=== PATIENT | female | born 1965 | race American Indian/Alaskan Native ===

== ENCOUNTER 2017-05-13 13:19 | Outpatient (CLI) | payer BC ==
--- NOTE | 2017-05-13 17:11 | Cat Scan Report ---
FINAL REPORT EXAM: CT ABDOMEN PELVIS WO/W CON HISTORY: ABNORMAL ULTRASOUND,CYST LLQ TECHNIQUE: Standard unenhanced and enhanced CT of the abdomen and pelvis. Delayed imaging through the pelvis was obtained. Coronal and sagittal reconstruction was also performed. Contrast: Intravenous and oral contrast was given PRIORS: None. FINDINGS: Within the abdomen, the liver, spleen, pancreas, adrenal glands, and kidneys are unremarkable. Gallbladder has been surgically removed. Prior surgery of the stomach is seen. No evidence for retroperitoneal or pelvic lymphadenopathy is seen. The bowel loops have normal caliber. No soft tissue mass, fluid collection, inflammatory change, or free air is seen within the abdomen or pelvis. The appendix is normal. Within the pelvis, the bladder is unremarkable. The uterus has been surgically removed. There cyst are 2 thin-walled homogeneous low-density cysts on either side of midline within the pelvis vaginal cuff (axial image 153, series 4). On the left, this measures 4.1 x 5.2 cm. On the right, this measures 4.0 x 3.7 cm. No evidence for mass or lymphadenopathy is seen in the pelvis. Images through the upper abdomen include the lung bases which demonstrates bibasilar linear atelectasis. Small hiatal hernia is seen. Bony structures show moderate degenerative disc narrowing at L5-S1 with a subtle, grade 1, retrolisthesis of L5 on S1. Bilateral facet joint degenerative changes are present from L4 through S1. Degenerative sclerosis is present on both sides of the SI joints. IMPRESSION: 1. no acute intra-abdominal process noted. 2. Two cysts near the vaginal cuff identified on both sides of midline in the pelvis. Findings are likely ovarian in etiology and can be confirmed with ultrasound. 3. Hysterectomy and cholecystectomy 4. Degenerative changes present throughout the spine and SI joint. 5. Small hiatal hernia.
== END 2017-05-13 13:20 | disposition home or self-care (01) ==
LOC: CT 13:19
DX: N94.89 Other specified conditions associated with female genital organs and menstrual cycle (principal); R30.0 Dysuria; R80.9 Proteinuria, unspecified; R93.8 Abnormal findings on diagnostic imaging of other specified body structures; Z90.49 Acquired absence of other specified parts of digestive tract; Z90.710 Acquired absence of both cervix and uterus; J98.11 Atelectasis; K44.9 Diaphragmatic hernia without obstruction or gangrene; M47.897 Other spondylosis, lumbosacral region
CPT/HCPCS: 74178; Q9967

== ENCOUNTER 2017-10-17 12:28 | Outpatient (CLI) | payer BC ==
--- NOTE | 2017-10-17 13:09 | Mammography Report ---
BILATERAL MAMMOGRAM: FINDINGS: There are scattered fibroglandular densities (approximately 25%-50% glandular). No mass, distortion, suspicious calcification, or skin change is seen. Biopsy marker in the anterior right breast. No significant change when compared to prior exam in April 2016. CAD was utilized. IMPRESSION: Negative mammogram. There is no mammographic evidence of malignancy. RECOMMENDATION: Follow-up per ACS guidelines. BI-RADS CATEGORY: 1 = Negative ACR BI-RADS MAMMOGRAPHIC CODES: 0 = Needs additional imaging evaluation; 1 = Negative; 2 = Benign; 3 = Probably benign; 4 = Suspicious; 5 = Malignant; 6 = Known biopsy-proven malignancy COMMENT: 1. Dense breast tissue, i.e., adenosis, fibrocystic changes, etc., may obscure an underlying neoplasm. 2. Approximately 10% of cancers are not detected with mammography. 3. A negative mammography report should not delay biopsy if a clinically suspicious mass is present. COMMENT: Patient follow-up letters are generated in [employer].
--- NOTE | 2017-10-17 19:05 | Cat Scan Report ---
FINAL REPORT PROCEDURE: CT PELVIS WO CON TECHNIQUE: Computerized axial tomography of the pelvis was performed without contrast material. HISTORY: OVARIAN CYSTS COMPARISON: 05/13/2017 TECHNICAL QUALITY: Satisfactory. FINDINGS: Imaged small and large intestine: Unremarkable. Genitourinary system: There has been hysterectomy. In the left pelvis there is a circumscribed cystic structure which measures 4.9 centimeters craniocaudal x 4.6 centimeters AP x 4.5 centimeters transverse. Previously seen right pelvic cyst is no longer visualized Lymph nodes/mesentery: Normal . Intraperitoneal fluid: None . Bilateral sacroiliac joint sclerotic changes IMPRESSION: Circumscribed cystic structure in the left pelvis is likely related to the left ovary and measures up to 4.9 centimeters. This is not significantly changed since the prior study. Evaluation with ultrasound could be obtained for further characterization. Previously seen right pelvic cyst is not visualized on the current exam
== END 2017-10-17 12:29 | disposition home or self-care (01) ==
LOC: MAMMO 12:28
PROVIDERS: ATTEND Obstetrics & Gynecology
DX: Z12.31 Encounter for screening mammogram for malignant neoplasm of breast (principal); N83.209 Unspecified ovarian cyst, unspecified side; Z90.710 Acquired absence of both cervix and uterus
CPT/HCPCS: 72192; 77067

== ENCOUNTER 2018-11-10 13:43 | Outpatient (CLI) | payer BC ==
--- NOTE | 2018-11-10 23:17 | Ultrasound Report ---
PROCEDURE: US PELVIC COMPLETE TECHNIQUE: Real-time transabdominal sonography in multiple planes of the pelvis was performed. The p elvic structures, especially the ovaries, were not optimally visualized. Transvaginal sonography was then performed to better evaluate the structures and/or abnormalities described below with image docu mentation. HISTORY: PELVIC PAIN, CYST COMPARISONS: None . FINDINGS: UTERUS The uterus is absent, this is consistent with surgical history RIGHT Ovary: The right ovary is not visualized. LEFT Ovary: 8.1 x 3.9 x 5.5 cm. Appearance: Complex partially cystic mass measures 4.9 cm. There is a large dominant cyst measuring 3 .8 cm.. Pelvic fluid: None. Other: None. IMPRESSION: The uterus is absent which is consistent with surgical history. The right ovary is not v isualized, this may be related to previous surgical removal. The left ovary is enlarged at 8.1 cm. There is a large complex left ovary cystic mass measuring 4.9 c m and a large dominant left ovary cyst measuring 3.8 cm.. This document is electronically signed by Tania Culp DO., November 11 2018 12:15:35 AM ET
== END 2018-11-10 13:44 | disposition home or self-care (01) ==
LOC: US 13:43
PROVIDERS: ATTEND Obstetrics & Gynecology
DX: N83.202 Unspecified ovarian cyst, left side (principal)
CPT/HCPCS: 76830; 76856

== ENCOUNTER 2018-11-21 09:09 | Outpatient (CLI) | payer BC | END 2018-11-21 09:10 | disposition home or self-care (01) | LOC: LAB 09:09 | PROVIDERS: ATTEND Obstetrics & Gynecology | DX: N83.209 Unspecified ovarian cyst, unspecified side (principal) | CPT/HCPCS: 36415; 82378; 82670; 86304 ==

== ENCOUNTER 2018-12-09 06:07 | Day surgery (SDC) | payer BC ==
[~2018-12-09 06:07] MED LIST: LACTATED RINGERS 1,000 ML IV SCH; NEURONTIN PO NR; TRANSDERM-SCOP TD NR; VERSED IV NR
[2018-12-09 07:09] LABS: Basophils # (Auto) 0.1 K/mm3 (0.0-0.1); Basophils % (Auto) 2.1 % (0.0-1.8); Eosinophils # (Auto) 0.2 K/mm3 (0.0-0.4); Eosinophils % (Auto) 4.3 % (0.0-4.3); Lymphocytes # (Auto) 2.3 K/mm3 (1.2-5.4); Lymphocytes % (Auto) 43.7 % (13.4-35.0); Mean Corpuscular HGB Conc 33 % (30-34); Mean Corpuscular Volume 75 fl (79-97); Monocytes # (Auto) 0.3 K/mm3 (0.0-0.8); Monocytes % (Auto) 5.4 % (0.0-7.3); Platelet Count 281 K/mm3 (140-440); Red Blood Count 4.92 M/mm3 (3.65-5.03); Red Cell Distribution Width 14.5 % (13.2-15.2)
--- NOTE | 2018-12-09 07:09 | History and Physical Report ---
History of Present Illness Date of examination: 12/09/18 Date of admission: 12/09/2018 Chief complaint: Left adnexal mass History of present illness: 53-year-old with a history of a left adnexal cystic mass measuring 4.9 cm. The patient has a history of a prior hysterectomy. She reports worsening pelvic pain and discomfort. She has elected to proceed with surgical management of the mass. Past History Past Medical History: hypertension, other (obesity;) Past Surgical History: cholecystectomy, section, other (total abdominal hysterectomy; right breast lumpectomy) Social history: single - Obstetrical History : 5 Para: 4 Hx # Term Pregnancies: 3 Number of Pregnancies: 1 Spontaneous Abortions: 1 Induced : 0 Number of Living Children: 4 Medications and Allergies Allergies Allergy/AdvReac Type Severity Reaction Status Date / Time No Known Allergies Allergy Unverified 12/03/18 16:55 Home Medications Medication Instructions Recorded Confirmed Last Taken Type Omeprazole 20 mg PO DAILY 12/03/18 12/03/18 Unknown History Active Meds: Active Medications Celecoxib (Celebrex) 200 mg PO PREOP NR Stop: 12/09/18 20:00 Gabapentin (Neurontin) 300 mg PO PREOP NR Stop: 12/09/18 20:00 Lactated Ringer's (Lactated Ringers) 1,000 mls @ 100 mls/hr IV DIRECT DARLINE Midazolam HCl (Versed) 2 mg IV PREOP NR Stop: 12/09/18 20:00 Scopolamine (Transderm-Scop) 1 each TD PREOP NR Stop: 12/09/18 20:00 Review of Systems All systems: negative Genitourinary: pelvic pain - Physical Exam Breasts: Positive: deferred Cardiovascular: Regular rate Lungs: Positive: Clear to auscultation Abdomen: Positive: normal appearance Results All other labs normal. Assessment and Plan - Patient Problems (1) Adnexal mass Current Visit: Yes Status: Acute Plan to address problem: Scheduled for robotic bilateral salpingo-oophorectomy and other indicated procedures (2) Pelvic pain Current Visit: Yes Status: Acute
--- NOTE | 2018-12-09 07:09 | Anesthesia Day of Surgery ---
Anesthesia Day of Surgery - Day of Surgery Patient Examined: Yes Patient H&P Reviewed: Yes Patient is NPO: Yes
--- NOTE | 2018-12-09 07:09 | Anesthesia Consultation ---
Anesthesia Consult and Med Hx Date of service: 12/09/18 - Airway Anesthetic Teeth Evaluation: Good ROM Head & Neck: Adequate Mental/Hyoid Distance: Adequate Mallampati Class: Class II Intubation Access Assessment: Good - Pulmonary Exam CTA: Yes - Cardiac Exam Cardiac Exam: RRR - Pre-Operative Health Status ASA Pre-Surgery Classification: ASA2 Proposed Anesthetic Plan: General - Pulmonary Hx Smoking: No - Cardiovascular System Hx Hypertension: Yes (not taken meds in 2 weeks , ran out) - Central Nervous System Hx Psychiatric Problems: No - Gastrointestinal Hx Gastroesophageal Reflux Disease: Yes (took omeprazole this am) - Other Systems Hx Alcohol Use: Yes (Occas) Hx Cancer: No Hx Obesity: Yes
[2018-12-09] MEDS ORDERED: ceFAZolin 2 GM in NACL 0.9% 100 ML IV ONE (07:10)
[2018-12-09] MEDS ORDERED: DECADRON ONE (07:20)
[2018-12-09] MEDS ORDERED: ZOFRAN ONE (07:20)
[2018-12-09] MEDS ORDERED: TORADOL ONE (07:20)
[2018-12-09] MEDS ORDERED: ZEMURON IV ONE (07:20)
[2018-12-09] MEDS ORDERED: SUBLIMAZE ONE (07:20)
[2018-12-09] MEDS ORDERED: XYLOCAINE MPF 2% ONE (07:20)
[2018-12-09] MEDS ORDERED: ZOFRAN IV PRN (07:21)
[2018-12-09] MEDS ORDERED: DIPRIVAN 10 MG/ML IV ONE (07:21)
[2018-12-09] MEDS ORDERED: KETALAR ONE (07:22)
[2018-12-09] MEDS ORDERED: NEOSPORIN GU IR ONE (07:23)
[2018-12-09] MEDS ORDERED: MARCAINE 0.5% INFILTRATI ONE ×2 (07:23→09:15)
[2018-12-09] MEDS ORDERED: ANCEF/STERILE WATER 2 GM/20 ML 2 GM/20 ML SYRINGE IV NR (08:00)
[2018-12-09] MEDS ORDERED: NACL 0.9% IR ONE (09:15)
--- NOTE | 2018-12-09 10:13 | Operative Report ---
Operative Report Operative Report: Date of surgery: 12/09/2018 Preoperative diagnoses: Left adnexal mass; pelvic pain Postoperative diagnoses: Same as above; extensive pelvic adhesive disease Procedure: Robotic -assisted bilateral salpingo-oophorectomy and lysis of adhesions Surgeon: Molly Camacho M.D. Pharmacy Clinical Specialist: Phyllis Montesinos M.D. Anesthesia: Gen. endotracheal anesthesia Estimated blood loss: 35 mL Pathology: Bilateral tubes and ovaries Indication: 53-year-old with a history of persistent left adnexal mass that was cystic in nature. The patient reported a history of pelvic pain. She elected to undergo surgical management. Procedure: The patient was taken to the operating room and given general endotracheal anesthesia without complication. She is prepped and draped in a normal sterile fashion. A sponge stick was placed in the vagina. Attention was then turned to the patient's abdomen where a 12 millimeter supra umbilical skin incision was then made. A Veress needle was placed and peritoneal entry was verified water- filled syringe. Insufflation of the peritoneal cavity was performed with CO2 gas. The 12 mm trocar was then placed under direct visualization. An additional 8 mm trocar was placed on the patient's left and right lateral side just opposite of the supraumbilical trocar. An additional 12 mm right lateral trocar was then placed as the accessory port. The Alejandro Cooper device was used to close the fascia of the 12 mm incisions. The patient was then placed in steep Trendelenburg. The da Diann robot was then engaged. A fenestrated forcep was placed in arm 2 and a monopolar scissors were placed in arm 1. The surgeon then transferred to the surgical console. General survey revealed multiple omental adhesions to the anterior abdominal wall obscuring the view of the pelvis. There was an enlarged left cystic mass involving the adnexa. The right tube and ovary were densely adherent to the vaginal cuff and multiple omental adhesions. Significant lysis of adhesions performed of the omental adhesions with the monopolar scissors. Once the adhesions were release the left adnexal mass was visualized. The monopolar scissors were used in order to lyse the adhesions of the mass to the left pelvic sidewall. An incidental cystotomy was performed with evidence of clear cystic fluid. The infundibulopelvic ligament on the left was isolated and coagulated with the fenestrated bipolar and then transected. The left adnexal mass was placed in the posterior cul-de-sac. Attention was then turned to the right adnexa which was adherent to the vaginal cuff. Lysis of adhesions were performed. The right infundibulopelvic ligament was isolated and coagulated with the fenestrated bipolar. Transection of the infundibulopelvic ligament was performed and the right tube and ovary were released from the right pelvic sidewall. An Endo Catch bag was placed through the 12 mm lateral port. The right and left tube and ovary were removed and with the Endo Catch bag. Irrigation of the pelvis was performed. Hemoblast was applied to the surgical sites. The skin was then reapproximated with 4-0 Monocryl. The tissue was sent to pathology which included the bilateral tubes and ovaries. A sponge stick was removed from the vagina. The patient was then successfully extubated. She was then taken to the recovery room in stable condition. All sponge laps and needle counts were correct x2.
[2018-12-09] MEDS ORDERED: PERCOCET 5/325 PO PRN ×2 (10:15→10:57)
[2018-12-09] MEDS ORDERED: IBUPROFEN PO PRN (10:15)
--- NOTE | 2018-12-09 10:15 | Discharge Summary ---
Providers - Providers Date of discharge: 12/09/18 Attending physician: MIGNON VYAS Primary care physician: MARIAH DELGADO Hospitalization Reason for admission: other (left adnexal mass) Procedure: other (robotic-assisted bilateral salpingo-oophorectomy and lysis of adhesions) Incision: normal Discharge diagnosis: other (left adnexal mass) Hospital course: The patient was admitted the day of surgery and underwent a robotic-assisted bilateral salpingo-oophorectomy. Please see operative note for details. The patient's postoperative course was uneventful. The patient was discharged home when she met discharge criteria. Condition at discharge: Good Disposition: [id number] TO HOME OR SELFCARE - Discharge Diagnoses (1) Adnexal mass Status: Acute (2) Pelvic pain Status: Acute Plan - Discharge Medications Prescriptions: Ibuprofen [Motrin] 800 mg PO Q8HR PRN #60 tablet PRN Reason: Pain, Mild (1-3) oxyCODONE /ACETAMINOPHEN [Percocet 5/325] 1 tab PO Q6HR PRN #30 tablet PRN Reason: Pain - Provider Discharge Summary Activity: no heavy lifting 4 weeks, no strenuous exercise Diet: routine Instructions: routine Additional instructions: [] Smoking cessation referral if applicable(refer to patient education folder for contact #) [] Refer to [facility] Booklet Call your doctor immediately for: * Fever > 100.5 * Heavy vaginal bleeding ( >1 pad per hour) * Severe persistent headache * Shortness of breath * Reddened, hot, painful area to leg or breast * Drainage or odor from incision. * Keep incision clean and dry at all times and follow doctor's instructions regarding bathing/showering Scheduled follow-up with Dr. Parson in 2 weeks - Follow up plan
[2018-12-09] MEDS: DILAUDID IV PRN ×2 (10:25→11:00)
[2018-12-09 12:12] VITALS: BP 148/68
--- NOTE | 2018-12-09 13:04 | Post Anesthesia Evaluation ---
- Post Anesthesia Evaluation Patient Participated: Yes Airway Patent: Yes Stable Respiratory Function: Yes Nausea/Vomiting: No Temp > 96.8F: Yes Pain Manageable: Yes Adequeate Hydration: Yes Anesthesia Complications: No Block Receding Appropriately: Not Applicable Patient on Ventilator: No
== END 2018-12-09 06:08 | disposition home or self-care (01) ==
LOC: OR 06:07
PROVIDERS: ATTEND Obstetrics & Gynecology
DX: N83.312 Acquired atrophy of left ovary (principal); N83.311 Acquired atrophy of right ovary; G43.909 Migraine, unspecified, not intractable, without status migrainosus; I10 Essential (primary) hypertension; K21.9 Gastro-esophageal reflux disease without esophagitis; E66.9 Obesity, unspecified; Z68.41 Body mass index [BMI] 40.0-44.9, adult; Z90.49 Acquired absence of other specified parts of digestive tract; Z90.710 Acquired absence of both cervix and uterus; Z79.899 Other long term (current) drug therapy; Z72.89 Other problems related to lifestyle; Z98.890 Other specified postprocedural states; Z86.2 Personal history of diseases of the blood and blood-forming organs and certain disorders involving the immune mechanism
CPT/HCPCS: 36415; 58661; 85025; 86850; 86900; 86901; 88305; J0690; J1100; J1170; J1885; J2250; J2405; J2704; J3010; J7120

== ENCOUNTER 2019-03-10 15:21 | Outpatient (CLI) | payer BC ==
--- NOTE | 2019-03-10 15:57 | XRay Report ---
Right knee, 2 views INDICATION: M25.561) PAIN IN RIGHT KNEE. COMPARISON: None. IMPRESSION: Normal bone mineralization. Mild medial compartment joint space narrowing and marginal spurring is identified. The lateral compartment and patellofemoral space are within normal limits. No evidence for fracture, bone lesion or osteochondral defect. Medium joint effusion is suggested on th e lateral image. Signer Name: Gio Cooper Jr, MD Signed: 03/10/2019 3:53 PM Workstation Name: [id number]
== END 2019-03-10 15:22 | disposition home or self-care (01) ==
LOC: XRAY 15:21
PROVIDERS: ATTEND Orthopaedic Surgery
DX: M25.561 Pain in right knee (principal); I10 Essential (primary) hypertension; K21.9 Gastro-esophageal reflux disease without esophagitis; Z90.49 Acquired absence of other specified parts of digestive tract; Z90.710 Acquired absence of both cervix and uterus